=== PATIENT | female | born 1985 | race Hispanic/Latino ===

== ENCOUNTER → 2018-05-05 | Outpatient (CLI) | payer OTHER ==
--- NOTE | 2018-05-05 16:04 | Diagnostic Imaging Report ---
PROCEDURE: CT scan of the chest WITH intravenous contrast, using standard protocol. TECHNIQUE: The chest was scanned utilizing a multidetector helical scanner from the lung apex through the level of the adrenal glands after the IV administration of 100cc of Isovue 370. Coronal and sagittal multiplanar reformations were obtained. DLP: 502.94 mGy-cm COMPARISON: None. INDICATIONS: ABNORMAL CXR, SHADOW ON LUNG FINDINGS: Lines/tubes: None. Lungs and Airways: The lungs and airways are normal with no focal abnormality demonstrated. Incidentally seen azygous lobe. Pleura: The pleural spaces are clear. Heart and mediastinum: The visualized thyroid gland is normal. No significant mediastinal, hilar or axillary lymphadenopathy is seen. The heart and pericardium are within normal limits. Soft tissues: Normal. Abdomen: Limited contrast-enhanced views of the upper abdomen show no abnormality within the visualized liver, spleen, pancreas, or kidneys. The adrenal glands are normal. Bones: Old fracture deformity of the lateral left ninth rib. Otherwise, visualized bony thorax is within normal limits. IMPRESSION: No acute thoracic abnormality. 1. Normal chest CT. Dictated by: Bucky Segura M.D. on 05/05/2018 at 16:09 Electronically approved by: Bucky Segura M.D. on 05/05/2018 at 16:09
== END ==
LOC: CT 14:39
PROVIDERS: ATTEND Family Medicine
DX: R93.8 Abnormal findings on diagnostic imaging of other specified body structures (principal)
CPT/HCPCS: 71260